=== PATIENT | female | born 1940 | race Two or more races ===

== ENCOUNTER 2024-02-08 12:52 | Outpatient (CLI) | payer OTHER | END 2024-02-08 13:00 | disposition home or self-care (01) | LOC: TOM 12:52 | PROVIDERS: ATTEND Internal Medicine Cardiovascular Disease | DX: G30.9 Alzheimer's disease, unspecified (principal) ==

== ENCOUNTER 2024-04-27 12:28 | Outpatient (CLI) | payer OTHER | END 2024-04-27 12:40 | disposition home or self-care (01) | LOC: TOM 12:28 | PROVIDERS: ATTEND Psychiatry & Neurology Clinical Neurophysiology | DX: F03.90 Unspecified dementia, unspecified severity, without behavioral disturbance, psychotic disturbance, mood disturbance, and anxiety (principal) ==